=== PATIENT | female | born 1975 | race Caucasian/White ===

== ENCOUNTER → 2017-03-20 | Outpatient (CLI) | payer OTHER ==
--- NOTE | 2017-03-20 10:04 | REP ---
MAXILLOFACIAL CT WITHOUT CONTRAST: HISTORY: Nasal polyps. The left frontal sinus is hypoplastic. Moderate mucosal thickening is present in the right maxillary sinus. Mild mucosal thickening is present in the ethmoid and left maxillary sinuses. Minimal mucosal thickening is present in the sphenoid and right frontal sinuses. The left frontal sinus is clear. Mucosal thickening involves the osteomeatal units. The middle and inferior nasal turbinates are partially paradoxical. There is minimal deviation of the nasal septum to the right. The cribriform plate, medial george of the orbits and optic canals are intact. The carotid canals form a segment of the posterolateral george of the sphenoid sinus. IMPRESSION: Sinus mucosal thickening as described above. Signed by Josh Mooney MD 03/20/2017 10:27 A
== END ==
LOC: M RAD 09:19
PROVIDERS: ATTEND Specialist
DX: J33.0 Polyp of nasal cavity (principal)

== ENCOUNTER 2017-07-07 14:13 | Emergency (ER) | payer OTHER ==
[~2017-07-07] VITALS: Ht 157.5 cm; Wt 92.7 kg
[2017-07-07] MEDS ORDERED: LORazepam 2 MG/ML VIAL (J2060) IV STA (15:21)
[2017-07-07] MEDS ORDERED: ONDANSETRON 4MG/2ML VIAL (J2405) IV ONE (15:30)
[2017-07-07] MEDS ORDERED: OXAZEPAM 15 MG CAP PO ONE (15:30)
[2017-07-07] MEDS ORDERED: NS 1,000 ML IV ONE (15:30)
[2017-07-07 15:34] LABS: ADD MANUAL DIFFER YES; CONTROL LINE HCG INT CTR LINE PRESENT; MEAN CORPUSCULAR HEMOGLOBIN 18.9 pg (27.0-33.0); MEAN CORPUSCULAR HGB CONC 27.3 g/dl (32.0-36.5); PLATELET COUNT, AUTOMATED 371 k/mm3 (150-450); RED CELL DISTRIBUTION WIDTH 20.5 % (11.5-14.5)
[2017-07-07 15:41] LABS: ALBUMIN 4.1 GM/DL (3.2-5.2); ALKALINE PHOSPHATASE 121 U/L (45-117); ALT/SGPT 54 U/L (12-78); ANION GAP 9 MEQ/L (8-16); AST/SGOT 122 U/L (15-37); BILIRUBIN,DIRECT 0.2 MG/DL (0.0-0.2); BILIRUBIN,TOTAL 0.5 MG/DL (0.2-1.0); BLOOD UREA NITROGEN 8 MG/DL (7-18); CALCIUM LEVEL 8.6 MG/DL (8.5-10.1); CARBON DIOXIDE LEVEL 28 MEQ/L (21-32); CHLORIDE LEVEL 108 MEQ/L (98-107); CREATININE FOR GFR 0.63 MG/DL (0.55-1.02); GLOMERULAR FILTRATION RATE > 60.0 (>58); GLUCOSE, FASTING 110 MG/DL (70-105); POTASSIUM SERUM 3.8 MEQ/L (3.5-5.1); SODIUM LEVEL 145 MEQ/L (136-145); TOTAL PROTEIN 8.2 GM/DL (6.4-8.2)
[2017-07-07 16:05] LABS: ANISOCYTOSIS 1+; EOSINOPHILS 2 % (0-5); HYPOCHROMASIA 2+
[2017-07-07 16:06] LABS: MICROCYTOSIS 2+
[2017-07-07] MEDS ORDERED: OXAZ30CA2 PO (17:43)
[2017-07-07 18:04] VITALS: BP 125/88
== END 2017-07-07 18:31 | disposition home or self-care (01) ==
LOC: M ED 14:13
DX: F10.10 Alcohol abuse, uncomplicated (principal); D53.9 Nutritional anemia, unspecified
CPT/HCPCS: 80048; 80076; 80320; 83690; 84703; 85025; 85610; 85730; 86850; 86900; 86901; 94760; 96374; 96375; 99284; J2060; J2405

== ENCOUNTER → 2017-07-14 | Outpatient (REF) | payer OTHER ==
[~2017-07-14] MED LIST: OXAZ30CA2 PO
[2017-07-14 18:59] LABS: BASO % 0.5 % (0.0-1.0); EOS % 1.7 % (0.0-3.0); LARGE UNSTAINED CELL # 0.1 K/mm3 (0.0-0.4); LARGE UNSTAINED CELL % 1.6 % (0.0-4.0); LYMPH % 33.7 % (24.0-44.0); MEAN CORPUSCULAR HEMOGLOBIN 18.7 pg (27.0-33.0); MEAN CORPUSCULAR HGB CONC 26.1 g/dl (32.0-36.5); MEAN CORPUSCULAR VOLUME 71.6 fl (80.0-96.0); MONO # 0.2 K/mm3 (0.0-0.8); MONO % 7.8 % (0.0-5.0); NEUTROPHILS # 1.6 K/mm3 (1.8-7.7); NEUTROPHILS % 54.7 % (36.0-66.0); PLATELET COUNT, AUTOMATED 197 k/mm3 (150-450); RED CELL DISTRIBUTION WIDTH 21.6 % (11.5-14.5); WHITE BLOOD COUNT 2.9 K/mm3 (4.0-10.0)
== END ==
LOC: M LAB REF 16:31
PROVIDERS: ATTEND Family Medicine Addiction Medicine
DX: D64.9 Anemia, unspecified (principal)

== ENCOUNTER → 2017-07-23 | Outpatient (CLI) | payer MEDICAID | LOC: M OUTALCOH 07:48 | PROVIDERS: ATTEND Psychiatry & Neurology Psychiatry | DX: F10.20 Alcohol dependence, uncomplicated (principal) ==

== ENCOUNTER 2017-09-23 08:45 | Outpatient (RCR) | payer MEDICAID | END 2017-09-24 | LOC: M OUTALCOH 08:45 | PROVIDERS: ATTEND Psychiatry & Neurology Psychiatry | DX: F10.20 Alcohol dependence, uncomplicated (principal) ==

== ENCOUNTER 2017-09-25 12:51 | Outpatient (RCR) | payer MEDICAID | END 2017-10-25 | LOC: M OUTALCOH 12:51 | DX: F10.20 Alcohol dependence, uncomplicated (principal) ==

== ENCOUNTER 2017-11-05 14:16 | Outpatient (RCR) | payer MEDICAID | END 2017-11-25 | LOC: M OUTALCOH 11-11 16:00 | DX: F10.20 Alcohol dependence, uncomplicated (principal) ==

== ENCOUNTER 2017-11-30 10:07 | Outpatient (RCR) | payer MEDICAID | END 2017-12-23 | LOC: M OUTALCOH 12-02 09:30 | DX: F10.20 Alcohol dependence, uncomplicated (principal) ==

== ENCOUNTER 2018-01-04 15:19 | Outpatient (RCR) | payer MEDICAID | END 2018-01-23 | LOC: M OUTALCOH 15:19 | DX: F10.20 Alcohol dependence, uncomplicated (principal) ==

== ENCOUNTER 2018-01-25 14:11 | Outpatient (RCR) | payer MEDICAID | END 2018-02-22 | LOC: M OUTALCOH 01-27 16:00 | DX: F10.20 Alcohol dependence, uncomplicated (principal) ==

== ENCOUNTER 2018-03-05 14:00 | Outpatient (RCR) | payer MEDICAID | END 2018-03-25 | LOC: M OUTALCOH 14:00 | DX: F10.20 Alcohol dependence, uncomplicated (principal) ==